=== PATIENT | male | born 1945 | race Caucasian/White ===

== ENCOUNTER → 2016-08-09 | Outpatient (CLI) | payer OTHER, BC ==
[~2016-08-09] VITALS: Ht 182.9 cm; Wt 74.6 kg
[~2016-08-09] MED LIST: AMBIEN 10 MG TA10 MG; CARDIZEM CD180 MG PO; COUMADIN 10MG T10 M1 PO; COUMADIN7.5 MG PO; FISH OIL 1,0001 EAC7 PO; FISH OIL 1,0001 EAC8 PO; FISHOIL; FLECAINIDE ACET50 M1 PO; HYDROCODONE-AP1 EAC6 PO; IBUPROFEN200 M2 PO; IRON; LANOXIN 0.120.125 M1 PO; LANOXIN 0.250.25 M1 PO; LISINOPRIL10 MG PO; LISINOPRIL20 MG PO; MELATONIN1 MG PO; MELATONIN3 MG PO; MULTIVITAMINS PO; PRADAXA150 MG PO; SLOW RELEASE I160 M1 PO; TOPROL XL25 MG PO; XARELTO20 MG PO; ZANAFLEX4 M1 PO
--- NOTE | ~2016-08-09 | P ---
[facility] [place] [address] PROCEDURE REPORT Name: EMILY SIMON [id number] Admission: 08/09/16 Attend Phys: Barrie Preston MD Discharge: Date of : 43 Report #: [id number] THIS REPORT FOR: //name// CC: Barrie Alexis MD DATE OF SERVICE: 08/09/2016 PROCEDURE NOTE: The patient was placed in the prone position. The L4-L5 interspace was sterilely prepped. A 17-gauge Tuohy with loss of resistance technique at the L5-S1 dermatomal area was noted. After appropriate infiltration with 0.25% bupivacaine, a 17-gauge Tuohy with loss of resistance technique was used to gain access to the epidural space. There was no CSF, heme or paresthesia. Total of 80 mg Depo-Medrol, 40 mg triamcinolone and 2 mL of 0.25% bupivacaine was injected. The patient was given a script for Zanaflex 4 mg 1 p.o. b.i.d. for muscle spasms. He was also given a PENNSAID (diclofenac) solution. He will rub this over the affected area of his right flexor tendons. Hopefully, this will help with the pain and discomfort. He will resume his Xarelto use. By: [id number] Barrie Preston MD /perfecto
--- NOTE | ~2016-08-09 | HPC ---
[facility] [place] [address] PAIN MANAGEMENT CONSULTATION Name: EMILY SIMON Room #: [facility]#: [id number] Admission: 08/09/16 Attend Phys: Barrie Preston MD Discharge: Date of : 43 Report #: [id number] THIS REPORT FOR: //name// CC: Barrie Alexis MD DATE OF SERVICE: 08/09/2016 FOLLOWUP COMPLAINT: The pain is worse in my back since I shoveled 4 cubic yards of mulch. FOLLOWUP HISTORY: The patient is a 70-year-old gentleman who has been followed in the pain clinic because of lumbar radiculopathy. He returns today with complaint of back pain with pain radiating down into the L5-S1 distribution on his right leg. He has had this in the past. Epidural steroid injections have been quite beneficial. He recently shoveled 4 cubic yards of mulch on his property. He has noted some pain and discomfort in the lower portion of his back with muscle spasms. He is having pain, which is radiating down into his leg with numbness, weakness and tenderness similar to that he has experienced in the past. He also has some pain and discomfort in the right arm in the insertion area of the common flexor tendon on the right. PHYSICAL EXAMINATION: Blood pressure 124/67, pulse 45, respiratory rate 16, room air saturations 100. The patient has pain and discomfort in the right arm on the attachment of the common flexor tendons. Palpation of the humerus reproduces pain and discomfort. He has pain and discomfort in the lower portion of his back with pain radiating down into the right L5-S1 nerve distribution with numbness, weakness and tenderness. IMPRESSION: 1. Recurrence of lumbar radiculopathy with numbness, weakness and tenderness after shoveling 4 cubic yards of mulch. 2. Right arm tenderness (golf elbow with pain and tenderness over the insertion area of the common flexor tendon). 3. Myofascial pain in the lower back area with spasms. 4. Chronic anticoagulation with Xarelto. RECOMMENDATIONS: We discussed treatment options with the patient. Risks and benefits of an epidural steroid injection were again reviewed. Possible complications were discussed. The patient elects to proceed. By: [id number] Barrie Preston MD /perfecto
[2016-08-09 09:32] VITALS: BP 124/67
== END ==
LOC: PAIN 06:46
DX: M54.16 Radiculopathy, lumbar region (principal); M79.1 Myalgia

== ENCOUNTER → 2018-05-14 | Outpatient (CLI) | payer OTHER, BC | LOC: MRI 10:33 | DX: S82.64XA Nondisplaced fracture of lateral malleolus of right fibula, initial encounter for closed fracture (principal); S82.54XA Nondisplaced fracture of medial malleolus of right tibia, initial encounter for closed fracture; S92.254A Nondisplaced fracture of navicular [scaphoid] of right foot, initial encounter for closed fracture; S90.01XA Contusion of right ankle, initial encounter; R60.0 Localized edema; W19.XXXA Unspecified fall, initial encounter; Y93.89 Activity, other specified; Y92.89 Other specified places as the place of occurrence of the external cause; Y99.8 Other external cause status ==

== ENCOUNTER → 2019-05-20 | Outpatient (CLI) | payer OTHER, BC | END | disposition home or self-care (01) | LOC: SJCVCIMAG 08:57 | DX: I35.1 Nonrheumatic aortic (valve) insufficiency (principal); I48.91 Unspecified atrial fibrillation; I71.2 Thoracic aortic aneurysm, without rupture; E78.5 Hyperlipidemia, unspecified; Z79.01 Long term (current) use of anticoagulants ==

== ENCOUNTER → 2019-09-14 | Outpatient (CLI) | payer OTHER, BC | LOC: SJCVC 11:38 | PROVIDERS: ATTEND Internal Medicine | DX: R00.1 Bradycardia, unspecified (principal); I48.0 Paroxysmal atrial fibrillation; I10 Essential (primary) hypertension; E78.5 Hyperlipidemia, unspecified; I71.2 Thoracic aortic aneurysm, without rupture; U07.1 COVID-19; J06.9 Acute upper respiratory infection, unspecified; Z79.899 Other long term (current) drug therapy; Z82.49 Family history of ischemic heart disease and other diseases of the circulatory system; Z79.01 Long term (current) use of anticoagulants ==

== ENCOUNTER → 2019-09-17 | Outpatient (CLI) | payer OTHER, BC | LOC: RAD 11:38 | DX: U07.1 COVID-19 (principal); J12.89 Other viral pneumonia ==

== ENCOUNTER → 2019-10-18 | Outpatient (CLI) | payer OTHER, BC | LOC: RAD 11:06 | PROVIDERS: ATTEND Family Medicine | DX: U07.1 COVID-19 (principal); J06.9 Acute upper respiratory infection, unspecified ==

== ENCOUNTER → 2019-11-18 | Outpatient (CLI) | payer OTHER, BC | LOC: SJCVC 10:55 | PROVIDERS: ATTEND Internal Medicine | DX: I48.0 Paroxysmal atrial fibrillation (principal); I10 Essential (primary) hypertension; E78.5 Hyperlipidemia, unspecified; I71.2 Thoracic aortic aneurysm, without rupture; U07.1 COVID-19; J06.9 Acute upper respiratory infection, unspecified; Z79.01 Long term (current) use of anticoagulants; Z79.899 Other long term (current) drug therapy; Z82.49 Family history of ischemic heart disease and other diseases of the circulatory system ==

== ENCOUNTER → 2020-01-20 | Outpatient (CLI) | payer OTHER, BC | LOC: SJCVC 10:40 | PROVIDERS: ATTEND Internal Medicine | DX: I48.0 Paroxysmal atrial fibrillation (principal); R00.1 Bradycardia, unspecified; J06.9 Acute upper respiratory infection, unspecified; I10 Essential (primary) hypertension; E78.5 Hyperlipidemia, unspecified; I71.2 Thoracic aortic aneurysm, without rupture; Z79.01 Long term (current) use of anticoagulants; Z79.899 Other long term (current) drug therapy ==

== ENCOUNTER → 2020-02-08 | Outpatient (CLI) | payer OTHER, BC | LOC: SJCVC 16:26 | PROVIDERS: ATTEND Internal Medicine | DX: I48.0 Paroxysmal atrial fibrillation (principal); R00.1 Bradycardia, unspecified; I10 Essential (primary) hypertension; I71.2 Thoracic aortic aneurysm, without rupture; J06.9 Acute upper respiratory infection, unspecified; U07.1 COVID-19; Z79.899 Other long term (current) drug therapy ==

== ENCOUNTER → 2020-03-29 | Outpatient (CLI) | payer OTHER, BC | LOC: SJCVC 09:56 | PROVIDERS: ATTEND Internal Medicine | DX: I48.0 Paroxysmal atrial fibrillation (principal); R00.1 Bradycardia, unspecified; R55 Syncope and collapse; I10 Essential (primary) hypertension; I71.2 Thoracic aortic aneurysm, without rupture; E78.5 Hyperlipidemia, unspecified; J06.9 Acute upper respiratory infection, unspecified; B97.29 Other coronavirus as the cause of diseases classified elsewhere; Z79.899 Other long term (current) drug therapy ==

== ENCOUNTER → 2020-05-24 | Outpatient (CLI) | payer OTHER, BC | LOC: SJCVCIMAG 09:19 | PROVIDERS: ATTEND Internal Medicine | DX: I35.1 Nonrheumatic aortic (valve) insufficiency (principal); I48.0 Paroxysmal atrial fibrillation; I10 Essential (primary) hypertension; I71.2 Thoracic aortic aneurysm, without rupture; R00.1 Bradycardia, unspecified; R55 Syncope and collapse; E78.5 Hyperlipidemia, unspecified; U07.1 COVID-19; J06.9 Acute upper respiratory infection, unspecified; Z90.49 Acquired absence of other specified parts of digestive tract; Z98.890 Other specified postprocedural states; Z88.8 Allergy status to other drugs, medicaments and biological substances; Z79.899 Other long term (current) drug therapy; Z82.49 Family history of ischemic heart disease and other diseases of the circulatory system ==

== ENCOUNTER → 2020-07-24 | Outpatient (CLI) | payer OTHER, BC | LOC: SJCVCIMAG 09:35 | PROVIDERS: ATTEND Internal Medicine | DX: I08.3 Combined rheumatic disorders of mitral, aortic and tricuspid valves (principal); I77.89 Other specified disorders of arteries and arterioles; I48.0 Paroxysmal atrial fibrillation; R00.1 Bradycardia, unspecified; R55 Syncope and collapse; I10 Essential (primary) hypertension; I71.2 Thoracic aortic aneurysm, without rupture; E78.5 Hyperlipidemia, unspecified; J06.9 Acute upper respiratory infection, unspecified; Z90.49 Acquired absence of other specified parts of digestive tract; Z98.890 Other specified postprocedural states; Z88.8 Allergy status to other drugs, medicaments and biological substances; Z79.899 Other long term (current) drug therapy; Z86.16 Personal history of COVID-19; Z82.49 Family history of ischemic heart disease and other diseases of the circulatory system ==

== ENCOUNTER → 2021-02-21 | Outpatient (CLI) | payer OTHER, BC | LOC: SJCVC 13:37 | PROVIDERS: ATTEND Internal Medicine | DX: R00.1 Bradycardia, unspecified (principal); I48.0 Paroxysmal atrial fibrillation; R55 Syncope and collapse; I10 Essential (primary) hypertension; I71.2 Thoracic aortic aneurysm, without rupture; E78.5 Hyperlipidemia, unspecified; J06.9 Acute upper respiratory infection, unspecified; U07.1 COVID-19; Z72.89 Other problems related to lifestyle; Z79.899 Other long term (current) drug therapy; Z88.1 Allergy status to other antibiotic agents ==